=== PATIENT | female | born 1985 | race Caucasian/White ===

== ENCOUNTER 2019-09-30 17:22 | Emergency (ER) | payer MEDICAID ==
--- NOTE | 2019-09-30 18:20 | EDM.PDOC ---
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 Problem Stated Complaint: MEDICAL Time Seen by Provider: 09/30/19 18:04 Source of Information: Reports: Patient, Family, RN Notes Reviewed History Limitations: Reports: No Limitations - History of Present Illness INITIAL COMMENTS - FREE TEXT/NARRATIVE: 33-year-old female presents emergency department with a complaint of heavy vaginal bleeding, she is a G9, P6 states she recently had a miscarriage about 4 weeks ago has been bleeding for the last 4 weeks however it just got heavy within the last 24 hours she does not feel lightheaded does not feel like passing out her blood pressure usually runs systolically around 100 does have follow-up appointment with her BILLET 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 next - Related Data Allergies Allergy/AdvReac Type Severity Reaction Status Date / Time No Known Allergies Allergy Verified 09/30/19 17:33 Home Meds: Home Meds NK [No Known Home Meds] 09/30/19 [History] Past Medical History 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: 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: 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 Dermatologic History: Reports: Eczema - Past Surgical History Head Surgeries/Procedures: Reports: None GI Surgical History: Reports: Cholecystectomy Dermatological Surgical History: Reports: None Social & Family History - Tobacco Use Smoking Status *Q: Current Every Day Smoker Years of Tobacco use: 17 Packs/Tins Daily: 1 - Caffeine Use Caffeine Use: Reports: Coffee, Soda - Recreational Drug Use Recreational Drug Use: No ED ROS GENERAL - Review of Systems Review Of Systems: See Below Constitutional: Reports: No Symptoms HEENT: Reports: No Symptoms Respiratory: Reports: No Symptoms Cardiovascular: Reports: No Symptoms GI/Abdominal: Reports: No Symptoms : Reports: Irregular Menses ED EXAM, RENAL/ - Physical Exam Exam: See Below Exam Limited By: No Limitations General Appearance: Alert, WD/WN, No Apparent Distress Respiratory/Chest: No Respiratory Distress, Lungs Clear, Normal Breath Sounds, No Accessory Muscle Use, Chest Non-Tender Cardiovascular: Regular Rate, Rhythm, No Murmur GI/Abdominal: Soft, Non-Tender Back Exam: Normal Inspection, Full Range of Motion. No: CVA Tenderness (R), CVA Tenderness (L) Course - Vital Signs Last Recorded V/S: Last Vital Signs Temp 97.7 F 09/30/19 17:36 Pulse 101 H 09/30/19 17:53 Resp 18 02/24/20 17:53 BP 106/79 09/30/19 17:53 Pulse Ox 97 09/30/19 17:53 - Orders/Labs/Meds Orders: Active Orders 24 hr Category Date Time Status Peripheral IV Care [RC] . DIRECTED Care 09/30/19 20:37 Ordered Sodium Chloride 0.9% [Saline Flush] Med 09/30/19 20:37 Ordered 10 ml FLUSH ASDIRECTED PRN Peripheral IV Insertion Adult [OM.PC] Urgent Oth 09/30/19 20:37 Ordered Medication Orders Sodium Chloride (Saline Flush) 10 ml FLUSH ASDIRECTED PRN PRN Reason: Keep Vein Open Labs: Laboratory Tests 09/30/19 09/30/19 09/30/19 Range/Units 18:27 18:27 18:27 WBC 14.7 H (4.5-11.0) K/uL RBC 4.28 (3.30-5.50) M/uL Hgb 13.2 (12.0-15.0) g/dL Hct 39.5 (36.0-48.0) % MCV 92 (80-98) fL MCH 31 (27-31) pg MCHC 33 (32-36) % Plt Count 323 (150-400) K/uL Neut % (Auto) 63 (36-66) % Lymph % (Auto) 30 (24-44) % Humphreys % (Auto) 5 (2-6) % Eos % (Auto) 1 L (2-4) % Baso % (Auto) 1 (0-1) % Sodium 144 (140-148) mmol/L Potassium 3.7 (3.6-5.2) mmol/L Chloride 104 (100-108) mmol/L Carbon Dioxide 26 (21-32) mmol/L Anion Gap 13.7 (5.0-14.0) mmol/L BUN 8 (7-18) mg/dL Creatinine 0.7 (0.6-1.0) mg/dL Est Cr Clr Drug Dosing 98.71 mL/min Estimated GFR (MDRD) > 60 (>60) Glucose 96 (74-106) mg/dL Lactic Acid 1.0 (0.4-2.0) mmol/L Calcium 9.3 (8.5-10.1) mg/dL TSH, Ultra Sensitive (0.358-3.740) uIU/mL HCG, Quant (0-6) mIU/mL 09/30/19 Range/Units 18:27 WBC (4.5-11.0) K/uL RBC (3.30-5.50) M/uL Hgb (12.0-15.0) g/dL Hct (36.0-48.0) % MCV (80-98) fL MCH (27-31) pg MCHC (32-36) % Plt Count (150-400) K/uL Neut % (Auto) (36-66) % Lymph % (Auto) (24-44) % Humphreys % (Auto) (2-6) % Eos % (Auto) (2-4) % Baso % (Auto) (0-1) % Sodium (140-148) mmol/L Potassium (3.6-5.2) mmol/L Chloride (100-108) mmol/L Carbon Dioxide (21-32) mmol/L Anion Gap (5.0-14.0) mmol/L BUN (7-18) mg/dL Creatinine (0.6-1.0) mg/dL Est Cr Clr Drug Dosing mL/min Estimated GFR (MDRD) (>60) Glucose (74-106) mg/dL Lactic Acid (0.4-2.0) mmol/L Calcium (8.5-10.1) mg/dL TSH, Ultra Sensitive 0.356 L (0.358-3.740) uIU/mL HCG, Quant 79 H (0-6) mIU/mL Meds: Medications Generic Name Dose Route Start Last Admin Trade Name Freq PRN Reason Stop Dose Admin Sodium Chloride 10 ml 09/30/19 20:37 Saline Flush FLUSH ASDIRECTED PRN Keep Vein Open Departure - Departure Time of Disposition: 20:45 Disposition: DC/Tfer to Acute Hospital 02 Condition: Fair Clinical Impression: Incomplete , Retained products of conception - Discharge Information Referrals: Joe Bazan MD [Primary Care Provider] - Forms: ED Department Discharge Additional Instructions: Please report to the emergency department and [facility] where you will meet Dr. Puente BILLET 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 who is on-call for Dr. Brunner Sepsis Event Note - Evaluation Sepsis Screening Result: No Definite Risk - Focused Exam Vital Signs: Vital Signs Temp Pulse Resp BP Pulse Ox 09/30/19 17:53 101 H 18 106/79 97 09/30/19 17:36 97.7 F 96 17 106/79 96 Date Exam was Performed: 09/30/19 Time Exam was Performed: 20:43 - My Orders Last 24 Hours: My Active Orders 09/30/19 20:37 Peripheral IV Care [RC] . DIRECTED Sodium Chloride 0.9% [Saline Flush] 10 ml FLUSH ASDIRECTED PRN Peripheral IV Insertion Adult [OM.PC] Urgent - Assessment/Plan Last 24 Hours: My Active Orders 09/30/19 20:37 Peripheral IV Care [RC] . DIRECTED Sodium Chloride 0.9% [Saline Flush] 10 ml FLUSH ASDIRECTED PRN Peripheral IV Insertion Adult [OM.PC] Urgent Plan: Assessment Acuity = acute Site and laterality = retained products of conception Etiology = continuing miscarriage Manifestations = heavy vaginal bleeding Location of injury = Home Lab values = WBC elevated 14.7 consistent leukocytosis, hemoglobin stable at 13.2 beta-hCG elevated at 79 ultrasound consistent with retained products of conception near the office Plan Initially called and discussed case with Dr. Puente BILLET 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 20:30 [place] kindly offered to continue evaluation and treatment of this patient concern for needing a D&C tonight, also call discussed case with Dr. Jimenez emergency room physician at [phone] made him aware the patient would be coming to his facility she has [address] will be transported via private vehicle This note was dictated using [id number] voice recognition software please call with any questions on syntax or grammar.
--- NOTE | 2019-09-30 20:09 | CRLUS ---
INDICATION: 4 WEEK MISCARRAGE, W/ VAGINAL BLEEDING INDICATION: Vaginal bleeding 4 weeks status post miscarriage TECHNIQUE: Ultrasound pelvis transvaginal only COMPARISON: None FINDINGS: Uterus: 7.4 centimeter x 4.2 centimeter x 4.4 centimeter. Normal echotexture of the myometrium. No masses. Endometrium: Is within endometrial canal is a 2.9 centimeter x 0.9 centimeter x 1.8 centimeter area of debris with color flow identified endometrial canal worrisome for retained products of conception. Right ovary: 3.7 centimeter x 2.3 centimeter x 2.4 centimeter. No ovarian or adnexal masses. Normal arterial and venous blood flow. Left ovary: 2.9 centimeter x 1.7 centimeter x 2.6 centimeter. No ovarian or adnexal masses. Normal arterial and venous blood flow. Cul-de-sac: No significant free fluid. IMPRESSION: 2.0 centimeter x 4.7 centimeter x 1.8 centimeter area of debris with hypervascularity within the endometrial canal worrisome for retained products of conception. Dictated by Yony James MD @ 09/30/2019 8:07:40 PM Dictated by: Yony James MD @ 09/30/2019 20:07:50 (Electronically Signed)
[2019-09-30] MEDS ORDERED: Sodium Chloride 0.9% 10 ML Syringe FLUSH PRN (20:37)
== END 2019-09-30 21:15 ==
LOC: JP.ED 17:22
DX: O03.4 Incomplete spontaneous abortion without complication (principal); F17.210 Nicotine dependence, cigarettes, uncomplicated
CPT/HCPCS: 36415; 76817; 80048; 83605; 84443; 84702; 85025; 99284; 99285-25